=== PATIENT | male | born 1985 | race Caucasian/White ===

== ENCOUNTER 2020-07-29 11:09 | Emergency (ER) | payer SELFPAY | END 2020-07-29 12:48 | disposition home or self-care (01) | LOC: MADERS 11:09 | DX: J20.9 Acute bronchitis, unspecified (principal); J44.0 Chronic obstructive pulmonary disease with (acute) lower respiratory infection; J44.1 Chronic obstructive pulmonary disease with (acute) exacerbation; J30.9 Allergic rhinitis, unspecified; Z71.6 Tobacco abuse counseling; F17.210 Nicotine dependence, cigarettes, uncomplicated; G43.909 Migraine, unspecified, not intractable, without status migrainosus | CPT/HCPCS: 71045; 99406 ==